=== PATIENT | female | born 1960 | race Caucasian/White ===

== ENCOUNTER 2020-10-11 17:35 | Emergency (ER) | payer OTHER ==
[~2020-10-11] VITALS: Ht 170.2 cm; Wt 84.8 kg
--- NOTE | 2020-10-11 17:58 | NUR ---
Dr Nguyen at the bedside for MSE.
[2020-10-11] MEDS ORDERED: HYDROCODONE/APAP 10-325 MG TABLET PO ONE (18:45)
[2020-10-11] MEDS ORDERED: HYDROCODONE/APAP 10-325 MG TABLET ONE (18:47)
--- NOTE | 2020-10-11 19:05 | NUR ---
Xray at bedside
--- NOTE | 2020-10-11 19:29 | NUR ---
Patient reports pain level 9/10. Notified MD, offered tyelnol and ice pack. Pt. declined tylenol, accepted ice pack.
[2020-10-11] MEDS ORDERED: HYDR-3980 PO (20:10)
[2020-10-11] MEDS ORDERED: IBUP-1955 PO (20:10)
--- NOTE | 2020-10-11 20:32 | NUR ---
Patient discharged to home in stable condition. Written and verbal after care instructions given. Patient verbalizes understanding of instructions. Stressed follow up or return to ER for worsening s/s. Pt. ambulatory with cane. Pt. offered crutches, pt. refused. aware. Vss. No acute signs of distress. All belongings taken with pt. Provided with a copy of x-ray and ultrasound results in cd of images. Pt. instructed not to drive, pt. will take taxi cab home.
[2020-10-11 20:34] VITALS: BP 108/72
== END 2020-10-11 20:35 | disposition home or self-care (01) ==
LOC: ER 17:41
DX: M84.471A Pathological fracture, right ankle, initial encounter for fracture (principal); M17.11 Unilateral primary osteoarthritis, right knee; G89.29 Other chronic pain; M54.41 Lumbago with sciatica, right side; F17.210 Nicotine dependence, cigarettes, uncomplicated; M25.461 Effusion, right knee
CPT/HCPCS: 73562; 73610; A4663

== ENCOUNTER 2024-07-25 12:33 | Emergency (ER) | payer OTHER ==
[~2024-07-25] VITALS: Ht 167.6 cm; Wt 81.6 kg
[~2024-07-25 12:33] MED LIST: HYDR-3980 PO; IBUP-1955 PO
[2024-07-25] MEDS ORDERED: HYDROCODONE/APAP 10-325 MG TABLET ONE (14:48)
[2024-07-25] MEDS ORDERED: HYDR-3980 PO (14:55)
[2024-07-25] MEDS: HYDROCODONE/APAP 10-325 MG TABLET PO ONE (14:58)
[2024-07-25 15:00] VITALS: BP 109/66; O2SAT 97
== END 2024-07-25 15:03 | disposition home or self-care (01) ==
LOC: ER 12:34
DX: S40.011A Contusion of right shoulder, initial encounter (principal); S90.01XA Contusion of right ankle, initial encounter; F17.200 Nicotine dependence, unspecified, uncomplicated; Z90.710 Acquired absence of both cervix and uterus; W18.30XA Fall on same level, unspecified, initial encounter; Y93.9 Activity, unspecified; Y92.9 Unspecified place or not applicable; Y99.9 Unspecified external cause status
CPT/HCPCS: 73020; 73600; A4606; A4663